=== PATIENT | male | born 1950 | race African-American/Black ===

== ENCOUNTER → 2016-04-13 | Outpatient (CLI) | payer BC, MEDICARE ==
--- NOTE | ~2016-04-13 | TH ---
Unit #: [id number] #: [id number] Patient: YOGESH REID JR [id number] [address] [place], [place] [address] [id number] O MR#: [id number] NAME: YOGESH REID JR : 1950 SEX: M STUDY DATE/TIME: 04/13/2016 UNIT: [facility] ROOM: STUDY DESCRIPTION: Attending Physician: Flakito Reno M.D. Referring Physician: Flakito Reno M.D. Primary Care Physician: Fidencio Samuels M.D. CARDIOLOGY REPORT EXAM Stress nuclear and ECG combined. INDICATION Shortness of breath, chest pain, for the diagnosis of obstructive coronary artery disease in a patient with a moderate family history of coronary artery disease and a moderate pretest likelihood of coronary artery disease. SUMMARY Patient exercised on a Darryn protocol and received technetium 99 Cardiolite 11.2 and 35.9 mCi at rest and stress respectively. Appropriate views were obtained. FINDINGS The rest and stress ECG showed no diagnostic ST shifts. There were single PVCs noted during the study. There were single PVCs noted after the study also. Patient completed 10 minutes of exercise. Heart rate increased from 59 to 142 (92%) and blood pressure increased from 118/83 to 180/90. There was no chest pain but typical shortness of breath. Perfusion images demonstrate diaphragmatic artifact at rest more than with stress. There was intestinal artifact at rest more than with stress. Otherwise, perfusion is normal and equivalent between rest and stress. Planar images showed no significant patient motion either at rest or stress. There was no significant lung uptake, LV or RV enlargement. Summed stress score is zero. Gated perfusion wall motion analysis demonstrates end-diastolic volume 91 mL and ejection fraction 65%. IMPRESSION 1. Myocardial perfusion scan shows no ischemia or infarction. 2. Normal wall motion with excellent ejection fraction. 3. Excellent exercise capacity. 4. Normal heart rate and blood pressure responses. 1. Dictated by... Fito Vargas M.D. Jose A Unit #: [id number] #: [id number] Patient: YOGESH REID JR TD: 04/15/2016 20:47 JOB #: [id number] CARDIOLOGY REPORT X Fito Vargas MD CARDIOLOGY REPORT
== END | disposition home or self-care (01) ==
LOC: CNUC 07:36
DX: R07.89 Other chest pain (principal)
CPT/HCPCS: 78452; 93017; A9500